=== PATIENT | female | born 1995 | race Caucasian/White ===

== ENCOUNTER 2020-02-21 14:07 | Inpatient (IN) | payer OTHER ==
[2020-02-21 14:57] VITALS: BMI 28.5
[2020-02-21 15:34] LABS: Amnisure Test RUPTURE DETECTED (No Rupture)
[2020-02-21 15:35] LABS: Amnisure Internal Control QC ACCEPTABLE (ACCEPTABLE)
[2020-02-21] MEDS ORDERED: Penicillin G Potassium 5 MILL.UNITS VIAL ONE (15:57)
[2020-02-21] MEDS ORDERED: HYDROcodone/Acetaminophen 5/325 mg Tablet PO PRN ×2 (15:58)
[2020-02-21] MEDS ORDERED: Diphenoxylate HCl/Atropine Tablet PO PRN ×2 (15:58)
[2020-02-21] MEDS ORDERED: Ibuprofen 800 MG TAB PO PRN (15:58)
[2020-02-21] MEDS ORDERED: hydrALAZINE 20 MG/ML VIAL SLOW IVP PRN (15:58)
[2020-02-21] MEDS ORDERED: NS / Oxytocin 40 units/1000ml 1,000 ML IV PRN (15:58)
[2020-02-21] MEDS ORDERED: Ondansetron PF 4 MG/2 ML Vial IVP PRN (15:58)
[2020-02-21] MEDS ORDERED: Carboprost 250 MCG/ML AMP IM PRN (15:58)
[2020-02-21] MEDS ORDERED: Acetaminophen 500 MG TAB PO PRN (15:58)
[2020-02-21] MEDS ORDERED: Butorphanol Tartrate 1 MG/ML VIAL SLOW IVP PRN (15:58)
[2020-02-21] MEDS ORDERED: Misoprostol 200 MCG TAB PR PRN (15:58)
[2020-02-21] MEDS ORDERED: Promethazine HCl 25 MG/ML VIAL IM PRN (15:58)
[2020-02-21] MEDS ORDERED: Lidocaine 1% (PF) 30 ML VIAL SC PRN (15:58)
[2020-02-21] MEDS ORDERED: Methylergonovine 0.2 MG/ML VIAL IM PRN (15:58)
[2020-02-21] MEDS ORDERED: Penicillin G Potassium 5 MILL.UNITS in Sodium Chloride 0.9% 100 ML IVPB SCH (16:00)
[2020-02-21] MEDS ORDERED: Lactated Ringer's 1,000 ML IV SCH (16:00)
[2020-02-21 16:24] LABS: Hemoglobin 11.1 g/dL (12.0-16.0); Mean Corpuscular HGB CONC 34.2 g/dL (32.0-36.0); Mean Corpuscular Volume 90.7 fL (78.0-98.0); Mean Platelet Volume 9.1 fL (7.4-10.4); Platelet Count 218 thou/uL (130-400); RBC Distribution Width 11.7 % (11.5-14.5); Red Blood Cell (RBC) Count 3.59 mill/uL (4.20-5.40)
[2020-02-21 17:03] LABS: HBSAg Index 0.23 S/CO (0-0.99); Hep B Surf Ag Non-Reactive S/CO (NonReactive)
[2020-02-21 17:04] LABS: Syphilis Antibody Nonreactive (Nonreactive); Syphilis Antibody Index 0.04 S/CO (<1.00 Non-Reactive)
[2020-02-21] MEDS: Penicillin G 2.5 MILL.units 2.5 MILL.UNITS in Premix Bag 1 BAG IVPB SCH (19:40)
[2020-02-21] MEDS ORDERED: NS w/ Oxytocin 30 units 500 ML ONE ×2 (20:38→23:36)
--- NOTE | 2020-02-21 22:10 | PDOC.EVN ---
Event Note - Event Note Event Note: Rapid progress with of viable female. Small vaginal laceration noted. Placenta remains undelivered. Dr. Sadler has arrived and will deliver placenta and do the repair.
--- NOTE | 2020-02-21 22:56 | PDOC.LDHP ---
Labor and Delivery H&P HPI: 25 y/o presents from home with PPROM, and Labor at 35 and 3/7 weeks. She is being admitted for a trial of labor. Current gestational age (weeks): 35 Due date: 03/24/20 Grav: 1 Para: 0 Current complications: none Abnormal US findings: No Current medications: pre- vitamins Allergies/Adverse Reactions: Allergies Allergy/AdvReac Type Severity Reaction Status Date / Time No Known Allergies Allergy Verified 02/21/20 15:07 Social history: none - Physical Exam Vital signs reviewed and normal: yes General: NAD, resting Heart: RRR Lungs: nonlabored breathing Abdomen: gravid Extremeties: no edema FHT: category 1 - Assessment L&D Assessment: premature rupture of membranes - Plan Plan: admit to L&D, labor augmentation if indicated
--- NOTE | 2020-02-21 22:59 | PDOC.EVN ---
Event Note - Event Note Event Note: Two posterior vaginal lacerations were noted on exam post . Lidocaine 1% was administered. Each was re-approximated using 2-0 chromic without difficulty. Placenta delivered spontaneously while I was initially putting gloves on into underbuttocks drape. Bleeding was minimal. Patient cleaned and allowed to recover in her LDR.
[2020-02-21 23:32] LABS: SARS-CoV-2 MS2 Positive; SARS-CoV-2 N Gene Negative; SARS-CoV-2 S Gene Negative; SARS-CoV-2 by NAA Not Detected (NotDetected); SARS-CoV-2 orf1ab Negative
[2020-02-22] MEDS ORDERED: Bisacodyl 10 MG SUPP PR PRN (00:05)
[2020-02-22] MEDS ORDERED: Milk Of Magnesia 30 ML UDCUP PO PRN (00:05)
[2020-02-22] MEDS ORDERED: diphenhydrAMINE 25 MG CAP PO PRN (00:05)
[2020-02-22] MEDS ORDERED: Preparation H Ointment 28 GM TUBE PR PRN (00:05)
[2020-02-22] MEDS ORDERED: Zolpidem Tartrate 5 MG TAB PO PRN (00:05)
[2020-02-22] MEDS ORDERED: Misoprostol 200 MCG TAB VAG PRN (00:05)
[2020-02-22] MEDS ORDERED: Benzocaine-Menthol 82.5 ML CAN TOP PRN (00:05)
[2020-02-22] MEDS ORDERED: Ondansetron PF 4 MG/2 ML Vial IVP PRN (00:05)
[2020-02-22] MEDS ORDERED: Methylergonovine 0.2 MG/ML VIAL IM PRN (00:05)
[2020-02-22] MEDS ORDERED: NS / Oxytocin 40 units/1000ml 1,000 ML IV SCH (00:05)
[2020-02-22] MEDS ORDERED: HYDROcodone/Acetaminophen 5/325 mg Tablet PO PRN ×2 (00:05)
[2020-02-22] MEDS ORDERED: Lanolin Ointment 7 GM TUBE TOP PRN (00:05)
[2020-02-22] MEDS ORDERED: hydrALAZINE 20 MG/ML VIAL SLOW IVP PRN (00:05)
[2020-02-22] MEDS ORDERED: Promethazine HCl 25 MG/ML VIAL IM PRN (00:05)
[2020-02-22] MEDS ORDERED: NS w/ Oxytocin 30 units 500 ML IV SCH (00:30)
[2020-02-22] MEDS: Penicillin G 2.5 MILL.units 2.5 MILL.UNITS in Premix Bag 1 BAG IVPB SCH (02:30)
[2020-02-22] MEDS: Ibuprofen 800 MG TAB PO SCH ×3 (05:30→21:24)
[2020-02-22 06:54] LABS: Hemoglobin 9.8 g/dL (12.0-16.0); Mean Corpuscular HGB CONC 34.2 g/dL (32.0-36.0); Mean Corpuscular Hemoglobin 30.8 pg (27.0-31.0); Mean Corpuscular Volume 90.1 fL (78.0-98.0); Mean Platelet Volume 8.4 fL (7.4-10.4); Platelet Count 187 thou/uL (130-400); RBC Distribution Width 11.5 % (11.5-14.5); Red Blood Cell (RBC) Count 3.17 mill/uL (4.20-5.40); White Blood Cell (WBC) Count 19.3 thou/uL (4.8-10.8)
[2020-02-22] MEDS ORDERED: Measles/Mumps/Rubella 10 MCG/0.5 ML VIAL SC ONE (09:00)
[2020-02-22] MEDS ORDERED: Varicella virus, LIVE 0.5 ML VIAL SC ONE (09:00)
[2020-02-22] MEDS ORDERED: Adacel (T-DAP) 0.5 ML SYRINGE IM ONE (09:00)
[2020-02-22] MEDS: Prenatal Vitamin 1 TAB PO SCH (09:10)
[2020-02-22] MEDS: Docusate Calcium (SURFAK) 240 MG CAP PO SCH ×2 (09:10→21:24)
[2020-02-22] MEDS: Ferrous Sulfate 325 MG TAB PO SCH ×2 (09:10→17:17)
--- NOTE | 2020-02-22 18:42 | PDOC.PP ---
Post Progress Note Post Day #: 1 PO intake tolerated: yes Flatus: yes Ambulation: yes Vital Signs (12 hours) Temp Pulse Resp BP Pulse Ox 02/22/20 17:15 98.0 F 93 12 114/56 L 97 02/22/20 12:06 98.2 F 89 20 104/59 L 02/22/20 08:18 98.2 F 92 20 108/58 L 97 02/22/20 07:45 97 Weight Weight 177 lb - Physical Examination General: NAD Cardiovascular: no m/r/g, RRR Respiratory: clear to auscultation bilaterally, non-labored breathing Abdominal: + bowel sounds, lochia, no distention, appropriately TTP Extremities: negative homans (B) Skin: CS incision dry & intact, no rash Neurological: no gross focal deficits Psychiatric: A&Ox3, normal affect Result Diagrams: 02/22/20 06:40 Additional Labs: Post Labs Hep Bs Antigen Non-Reactive S/CO (NonReactive) 02/21/20 15:44 Blood Type A NEGATIVE 02/21/20 15:44
--- NOTE | 2020-02-22 22:57 | DN ---
DATE OF PROCEDURE: 02/21/2020 TIME OF SERVICE: 2144 hours Central Standard Time. PREOPERATIVE DIAGNOSES: Intrauterine at 35 weeks and 3 days with premature rupture of membranes and spontaneous labor. POSTOPERATIVE DIAGNOSES: Intrauterine at 35 weeks and 3 days with premature rupture of membranes and spontaneous labor. PROCEDURE PERFORMED: Spontaneous vaginal delivery over two vaginal lacerations. FINDINGS: Viable female weighing 2490 g or 5 pounds 8 ounces, Apgars 8 and 9. QUANTITATIVE BLOOD LOSS: 231 mL. COMPLICATIONS: None. DETAILS OF THE PROCEDURE: Additional physician responding to this delivery was Dr. Qamar Delcid. He was present for the entire delivery of a viable female . I arrived after the baby was delivered and the placenta was still in place. The placenta was delivered and stitches were performed using 2-0 chromic suture repairing two vaginal lacerations. Quantitative blood loss was at 231 mL and we were complete. Uterus was firm and the patient was allowed to recover in the Labor and Delivery room. Please see Dr. Delcid's note for delivery. Job ID: [id number]
[2020-02-23] MEDS: Ibuprofen 800 MG TAB PO SCH ×3 (05:39→17:23)
[2020-02-23 07:57] VITALS: BP 108/65; TEMP 97.9
[2020-02-23] MEDS: Ferrous Sulfate 325 MG TAB PO SCH ×2 (08:19→17:23)
[2020-02-23] MEDS: Prenatal Vitamin 1 TAB PO SCH (08:19)
[2020-02-23] MEDS: Docusate Calcium (SURFAK) 240 MG CAP PO SCH (08:19)
== END 2020-02-23 18:35 | disposition home or self-care (01) | DRG 805 ==
LOC: L&D/OP 14:07 → L&D 16:02 → 3SW 02-22 00:42
PROVIDERS: ADMIT Obstetrics & Gynecology; ATTEND Obstetrics & Gynecology
PROC: 10E0XZZ Delivery of Products of Conception, External Approach (ICD-10-PCS; principal; 2020-02-21)
PROC: 0HQ9XZZ Repair Perineum Skin, External Approach (ICD-10-PCS; 2020-02-21)
DX: O42.913 Preterm premature rupture of membranes, unspecified as to length of time between rupture and onset of labor, third trimester (principal); O60.13X0 Preterm labor second trimester with preterm delivery third trimester, not applicable or unspecified; Z37.0 Single live birth; Z20.822 Contact with and (suspected) exposure to COVID-19; O70.0 First degree perineal laceration during delivery; Z3A.35 35 weeks gestation of pregnancy
CPT/HCPCS: 36415; 84112; 85027; 85461; 86780; 86850; 86870; 86900; 86901; 87340; 87635; 90384; 96372; J2001; J2540; J2590; U0003; U0005

== ENCOUNTER 2020-09-09 14:58 | Emergency (ER) | payer OTHER | END 2020-09-09 18:00 | disposition home or self-care (01) | LOC: ERS 14:58 | DX: H66.92 Otitis media, unspecified, left ear (principal); H60.92 Unspecified otitis externa, left ear | CPT/HCPCS: 99282 ==